=== PATIENT | female | born 2000 | race African-American/Black ===

== ENCOUNTER 2020-06-27 20:56 | Emergency (ER) | payer MEDICAID ==
[~2020-06-27] VITALS: Ht 154.9 cm; Wt 45.8 kg
[2020-06-27 21:04] VITALS: BP 121/85; Ht 154.9 cm; Wt 45.8 kg
== END 2020-06-27 21:39 | disposition left against medical advice (07) ==
LOC: ED 20:56
DX: Z53.21 Procedure and treatment not carried out due to patient leaving prior to being seen by health care provider (principal)